=== PATIENT | female | born 1995 | race Caucasian/White ===

== ENCOUNTER 2021-03-25 11:56 | Inpatient (IN) | payer SELFPAY ==
[2021-03-25] VITALS (51 sets, daily range): BP systolic 94–142; BP diastolic 53–95; PULSE 77–121; RESP 17; TEMP 36.4; O2SAT 98–100; BMI 29.8
[2021-03-25 11:21] LABS: Basophils % 0.5 %; Eosinophils % 0.2 %; Hematocrit 34.7 % (37.0-47.0); Hemoglobin 10.3 g/dL (11.5-15.3); Lymphocytes # 1.5 10^3/uL (0.8-4.8); Lymphocytes % 16.5 %; Mean Corpuscular HGB Conc 29.7 g/dL (30.0-36.0); Mean Corpuscular Hemoglobin 24.8 pg (28.0-34.0); Mean Corpuscular Volume 83.4 fl (81-99); Mean Platelet Volume 10.9 fL (7.4-10.4); Monocytes # 0.3 10^3/uL (0.2-0.9); Neutrophils # 7.01 10^3/uL (1.8-7.7); Neutrophils % 79.1 %; Nucleated Red Blood Cells % 0 %; Platelet Count 120 10^3/cmm (130-400); Red Blood Count 4.16 10^6/uL (4.1-5.3); Red Cell Distribution Width 26.7 % (12.1-15.1); White Blood Count 8.9 10^3/uL (4.0-10.0)
[2021-03-25 12:04] LABS: Rubella IgG 120.6 IU/mL (0.0-10.0)
[2021-03-25 12:05] LABS: Hepatitis B Surface Antigen Non-Reactive (Nonreactive)
[2021-03-25 12:06] LABS: Rapid Plasma Reagin Syphilis Nonreactive (Nonreactive)
[2021-03-25 12:13] LABS: Slide Review Slide Review Perform
[2021-03-25] MEDS: ampicillin 2,000 MG in sodium chloride 0.9% (plus) 50 ML 100 MG IV (12:31)
[2021-03-25] MEDS: dextrose 5%-lactated ringers 1,000 ML 125 ML IV (12:32)
[2021-03-25 12:42] LABS: Amphetamines Screen Urine Negative (Negative); Barbiturates Screen Urine Negative (Negative); Benzodiazepines Screen Urine Negative (Negative); Cocaine Screen Urine Negative (Negative); Opiate Screen Urine Negative (Negative); PCP Screen Urine Negative (Negative); THC Screen Urine Negative (Negative)
[2021-03-25 12:53] LABS: HIV 1 & 2 Antibody Non-Reactive (Non-Reactiv); HIV 1 & 2 Antigen Non-Reactive (Non-Reactiv)
[2021-03-25 13:55] LABS: Bacteria Urine TRACE /hpf; Bilirubin Urine Neg (Negative); Blood Urine Neg (Negative); Glucose Urine UA Norm (Normal); Ketones Urine Negative (Negative); Leukocyte Esterase Urine Negative (Negative); Mucus Urine 2+ /hpf; Nitrate Urine Negative (Negative); Protein Urine Neg (Negative); RBC Urine 0-4 /hpf (0-2); Squamous Epithelial Cell Urine 0-4 /hpf (0-5); Urine Appearance Clear (CLEAR); Urine Color Yellow (Yellow); Urobilinogen Urine Norm (Negative); WBC Urine 0-4 /hpf (0-5); pH Urine 6.5 (5-7)
[2021-03-25 13:56] LABS: Add Urine Culture? No
--- NOTE | 2021-03-25 14:34 | ANES.PREANE2 ---
Pre-Anesthetic Assessment Pre-Anesthetic Assessment: Height/Weight: Height 1.57 m Weight 73.936 kg Temp Pulse BP Pulse Ox 97.5 F L 93 118/69 100 03/25/21 10:49 03/25/21 14:32 03/25/21 14:32 03/25/21 14:31 Preop Diagnosis: iup Proposed Procedure: epidural Familial anesthetic complications: BP dropped with previous epidural Last intake: 0900 Social: Social History: No alcohol and No tobacco Exam: Pre-Anes Outpt Exam: alert, oriented x 3, clear to auscultation bilaterally and regular rate & rhythm Airway: Cervical ROM: WNL MP: 2 Dentition: Full Anesthetic Plan: ASA status: 2 Anesthesia: Regional (specify below) Other: no care, denies any easy bruising and bleeding. patient informed of increased risk of epidural hematoma d/t uknown baseline platelet level, wishes to proceed Risk of > 500 ml blood loss (7ml/kg in children): Yes, adequate IV access and fluids planned Meds/Allergies Current Medications: Current Medications Generic Name Dose Route Start Last Admin Trade Name Freq PRN Reason Stop Dose Admin Dextrose/Lactated Ringer's 1,000 mls @ 125 m ls/hr 03/25/21 11:00 03/25/21 12:32 Dextrose 5%-Lact ated Ringers IV 125 mls/hr .Q8H JESUS Administration PFSH Anesthesia Female Reproductive History: : 3 Data Anesthesia CBC & Chem 7: 03/25/21 Unknown Other Labs: Laboratory Results - last 48 hr 03/25/21 03/25/21 03/25/21 12:00 12:06 Unknown WBC 8.9 RBC 4.16 Hgb 10.3 L Hct 34.7 L MCV 83.4 MCH 24.8 L MCHC 29.7 L RDW 26.7 H Plt Count 120 L MPV 10.9 H Neut % (Auto) 79.1 Lymph % (Auto) 16.5 [place] % (Auto) 3.0 Eos % (Auto) 0.2 Baso % (Auto) 0.5 Neut # (Auto) 7.01 Lymph # (Auto) 1.5 [place] # (Auto) 0.3 Eos # (Auto) 0.0 Baso # (Auto) 0.0 Nucleated RBC % (auto) 0 Nucleated RBCs # 0.0 Urine Color Yellow Urine Appearance Clear Urine pH 6.5 Ur Specific [place] 1.010 Urine Protein Neg Urine Glucose (UA) Norm Urine Ketones Negative Urine Blood Neg Urine Nitrate Negative Urine Bilirubin Neg Urine Urobilinogen Norm Ur Leukocyte Esterase Negative Urine RBC 0-4 H Urine WBC 0-4 H Ur Squamous Epith Cells 0-4 H Amorphous Sediment Not Reportable Urine Bacteria Trace Urine Mucus 2+ Urine Opiates Screen Negative Ur Barbiturates Screen Negative Ur Phencyclidine Scrn Negative Ur Amphetamines Screen Negative U Benzodiazepines Scrn Negative Urine Cocaine Screen Negative U Marijuana (THC) Screen Negative RPR Hep Bs Antigen HIV 1&2 Ab & HIV 1 Ag HIV 1&2 Antibody Rubella IgG Antibody 03/25/21 03/25/21 03/25/21 Unknown Unknown Unknown WBC RBC Hgb Hct MCV MCH MCHC RDW Plt Count MPV Neut % (Auto) Lymph % (Auto) [place] % (Auto) Eos % (Auto) Baso % (Auto) Neut # (Auto) Lymph # (Auto) [place] # (Auto) Eos # (Auto) Baso # (Auto) Nucleated RBC % (auto) Nucleated RBCs # Urine Color Urine Appearance Urine pH Ur Specific [place] Urine Protein Urine Glucose (UA) Urine Ketones Urine Blood Urine Nitrate Urine Bilirubin Urine Urobilinogen Ur Leukocyte Esterase Urine RBC Urine WBC Ur Squamous Epith Cells Amorphous Sediment Urine Bacteria Urine Mucus Urine Opiates Screen Ur Barbiturates Screen Ur Phencyclidine Scrn Ur Amphetamines Screen U Benzodiazepines Scrn Urine Cocaine Screen U Marijuana (THC) Screen RPR Nonreactive Hep Bs Antigen Non-reactive HIV 1&2 Ab & HIV 1 Ag Non-reactive HIV 1&2 Antibody Non-reactive Rubella IgG Antibody 120.6 H Cardiac Studies: No Data to Display
--- NOTE | 2021-03-25 14:35 | ANES.PROC ---
Anesthesia Procedures Procedure/Date: 03/25/21 Epidural: Time Out Performed: Yes Consents Signed: Procedure Consent and NPO Consent Consent: requested by attending/covering physician, from patient, risks and benefits reviewed and patient agrees to proceed Lumbar Level: L3-L4 Epidural procedure: sterile prep of area, 1% lidocaine to numb the area, 18 g needle, negative for paresthesia passed, neg for paresthesia, test dose given, 1.5% xylocaine 1:200k epi (5), placed PCEA, no systemic response, sterile dressing applied, L.U.D. no apparent complications and 0.2% Ropiavacaine @ mls/hr (11)
[2021-03-25] MEDS: ampicillin 1,000 MG in sodium chloride 0.9% (plus) 50 ML 100 MG IV (15:18)
[2021-03-25] MEDS: oxytocin 30 UNIT/500 ML BAG 600 UNIT IV (16:16)
--- NOTE | 2021-03-25 17:28 | P.HP_ITS ---
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 Her estimated gestational age is unknown but she is thought to be in the third trimester. She had no care because she did not have insurance, and she was concerned she would not b be able to pay for the doctor's visits. She began having contractions the day prior to her arrival on the OB floor. Her membranes were intact. She did not use any illicit drugs during her . Present Details : 3 Para: 2 Labs Rubella: Immune RPR: Negative GBS: Unknown Review of Systems General: Reports: 10 or more systems reviewed and unremarkable except in HPI and below Const: Reports: fatigue; Denies: fever(s) Eyes: Denies: change in vision Card: Denies: chest pain Musc: Reports: back pain Ricky/Lymph: Denies: easy bruising Medications/Allergies Home Medications Medication Instructions Recorded Confirmed Last Taken Type ibuprofen 800 mg PO TID #30 tab 03/26/21 Unknown Rx multivit no.21-[id number] acid 1 cap PO DAILY #30 cap 03/26/21 Unknown Rx [-U] Vitals/I&O/Wt Last Vital Signs Temp 97.5 F L 03/25/21 10:49 Pulse 86 03/25/21 16:52 BP 126/76 03/25/21 16:52 Pulse Ox 100 03/25/21 15:06 Weight last 48 hrs Weight 163 lb Physical Exam Const: COMMON NORMALS: patient oriented x3 and alert HENMT: COMMON NORMALS: moist oral mucous membranes HEAD & SCALP: normal to inspection Chest: COMMONS NORMALS: normal inspection of the chest Resp: COMMON NORMALS: clear to auscultation bilaterally AUSCULTATION: clear to auscultation bilaterally Cardio: COMMON NORMALS: regular rate and regular rhythm RATE: regular rate RHYTHM: regular rhythm GI: INSPECTION: Yes normal to inspection and Yes other (Gravid) : EXTERNAL FEMALE EXAM: Yes normal appearance of the urethra MANUAL OB EXAM: other (Originally 7 cm and 70% effaced.) Extremity: COMMON NORMALS: normal to inspection GENERAL: Yes edema (Trace) Neuro: COMMON NORMALS: patient oriented x3, moves all extremities and no sensory deficits noted SENSORIUM/ORIENTATION: Yes alert Psych: COMMON NORMALS: mental status grossly normal Skin: COMMON NORMALS: no rashes or lesions noted GENERAL SKIN EXAM: no rashes or lesions noted Urinary Catheter Management^: Perrin: Cath Placed During This Visit: yes Urinary Catheter Date of Insertion: 03/25/21 Urinary Catheter Time of Insertion: 15:05 Data : 03/26/21 05:24 Other Labs: The urinalysis was within normal limits. The urine drug screen was negative. Her RPR, hepatitis B, HIV, rubella were all within normal limits. Her blood type is a positive. Her antibody screen is negative. Chlamydia and gonorrhea are pending. A&P Assessment and plan (1) Third trimester : We will perform routine labs on the patient. We will adjust treatment based on any findings that are significant in her labs. She will be placed on group B strep protocol. I anticipate a routine spontaneous vaginal delivery given her history. Because of no care, per protocol, DFS will be contacted. To this point, the patient and her seem to be caring and appropriate. I am hopeful that DFS will only need to be involved briefly. Status: Acute Attestations Medical Necessity Statement*: I anticipate routine labor care. We will assess care after delivery. Coding Level of Care Code Acute Asset Protection Representative for Tig Fwd Exam Comprehensive Diagnoses Third trimester Z34.93
--- NOTE | 2021-03-25 17:39 | P.PCNOB_ITS ---
Delivery Note: Date of delivery: March 25, 2021 Pre-delivery diagnoses: 1. A 25-year-old 3 para 2-0-0-2 in her third trimester presenting in active labor Post-delivery diagnoses: Status post spontaneous vaginal delivery Procedure: Spontaneous vaginal delivery Op report anesthesia: Epidural Delivering Physician: Earl Power Estimated blood loss (mL): 100 Pre-Delivery Course: The patient presented to the hospital in active labor. Her membranes were intact. Labs were performed because she had no care. heart tones were reactive. The patient was cooperative and gracious throughout the process. Delivery: DELIVERY: The patient progressed to complete without difficulty. She delivered a female with a weight of 7 pounds 7 ounces with Apgars of 9, 9. The baby was delivered from the TONIA position and placed on the mother's abdomen. The cord was then clamped and cut 1 minute after delivery. There was no nuchal cord. There was no meconium. The placenta and 3 vessel cord were delivered intact shortly thereafter. The perineum and vaginal vault were carefully examined. No lacerations were noted. Both the mother and the baby were in stable condition. Post-Delivery Status: Good A&P Assessment and plan (1) Third trimester : Status: Acute Coding Level of Care Code Acute Grocery Store Courtesy Clerk for Chg Fwd Diagnoses Third trimester Z34.93
[2021-03-25] MEDS: docusate sodium 100 mg Capsule PO (18:44)
[2021-03-25] MEDS: ibuprofen 800 mg tablet PO (21:25)
[2021-03-26] VITALS (7 sets, daily range): BP systolic 119–129; BP diastolic 63–84; PULSE 66–82; RESP 16; TEMP 36.2–36.6
--- NOTE | 2021-03-26 05:35 | NUR.SHIFT ---
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 Hospice Community Liaison rubbed pts fundus it was midline -2 fingerbreaths bellow umbilicus firm scant bleeding with no clots.
[2021-03-26 05:50] LABS: Hematocrit 30.5 % (37.0-47.0); Mean Corpuscular HGB Conc 29.5 g/dL (30.0-36.0); Mean Corpuscular Hemoglobin 24.3 pg (28.0-34.0); Mean Corpuscular Volume 82.2 fl (81-99); Mean Platelet Volume 11.2 fL (7.4-10.4); Platelet Count 125 10^3/cmm (130-400); Red Blood Count 3.71 10^6/uL (4.1-5.3); Red Cell Distribution Width 26.1 % (12.1-15.1); White Blood Count 9.4 10^3/uL (4.0-10.0)
[2021-03-26] MEDS: prenatal vitamin Capsule 1 CAP PO (08:12)
[2021-03-26] MEDS: ibuprofen 800 mg tablet PO ×2 (08:12→15:22)
[2021-03-26] MEDS: docusate sodium 100 mg Capsule PO (08:12)
--- NOTE | 2021-03-26 09:40 | ANE.PACU2 ---
Inpatient post-anesthesia follow up: Airway intact: Yes Vital signs: Temperature 97.8 F Pulse Rate 82 Respiratory Rate 16 Blood Pressure 119/76 Pulse Oximetry 100 Oxygen Delivery Me thod Room Air Oxygen Flow Rate Fraction of Inspir ed Oxygen Hydration adequate: Yes Nausea and vomiting: No Pain level: 2 Mental status: Baseline
--- NOTE | 2021-03-26 09:47 | PC.SOCIAL ---
Pt requested Medicaid OB Nurse called & said that pt was interested in Medicaid. Rehab Rn emailed [facility] & provided pt with resident care aide applications. Informed pt that she can go on Medicaid.gov to get more info & [employer] helps people get Medicaid started. No other needs voiced by pt. Pt's at side.
--- NOTE | 2021-03-26 13:43 | PC.NURSE ---
This nurse walked into room to find grandfather holding up phone and videoing conversation with the DFS worker. This nurse continued watch from the side as grandfather and worker came to agreement so the worker could see the other children at the home. The grandfather then turned to myself asking why/who made the call stating that the call was made claiming drug abuse/use and wanted to know why that call was made and then asked if it was made because of his skin in dark , as he points to the baby's father. This nurse reassured that it was noted due to that and that we here in the OB dept as mandated reporters are required to make the call-in for no or limited care. He then quickly jumped to say that's ridiculous, we have talked with several nurses and they all say that its not required to spend thousands of dollars on appts that are not required. This nurse again just explained how it in our policy and he returned back with well I will be getting in contact with my glass curvature gauger to talat the hospital. Grandfather and DFS worker then left together to see the other children.
--- NOTE | 2021-03-26 14:43 | P.DS_ITS ---
Discharge Providers SENIOR PRIVATE CLIENT ADVISOR Date of Admission: 03/25/21 11:56 Date of Discharge: 03/26/21 Attending Provider at Admission: Earl Power MD Attending Provider at Discharge: Earl Power MD Primary Care Provider: Ghislaine Parrish MD Diagnoses at Discharge Discharge Diagnosis (1) Third trimester : Status: Acute (2) Spontaneous vaginal delivery: Status: Acute (3) care insufficient: Status: Acute Reason for Visit Reason for Visit: contractions Hospital Course Hospital Course The patient presented to the hospital in active labor. She had had no care. She is unsure of her LMP. Her membranes were intact. She is having consistent contractions. Her cervix is 7 cm. An epidural was placed. She progressed to complete. Her membranes ruptured as she was delivering the baby. No repair was required. She breast-fed well . Her bleeding was within normal limits. Her pain was well controlled. There were no concerns. DFS was contacted per policy because of no care. The patient and her were notified, and they were understanding. Otherwise, the parents appear to do an excellent job of caring for their infant. They both appear to be very appropriate, mature, and appeared to be very comfortable, but I take care of the baby. The grandfather did arrive today with a DFS worker also arrived. He was very frustrated that DFS been contacted. The nurses and DFS workers discussed this with him. Information Peripartum Data: Delivery Method: Vaginal Physical Exam Narrative: EXAM NARRATIVE: The patient is alert. She appears comfortable. Her heart has a regular rate and rhythm with no murmurs appreciated. Lungs are clear to auscultation bilaterally. Her fundus is firm and below the umbilicus. Urinary Catheter Management^: Perrin: Cath Placed During This Visit: yes, but has since been removed by the nurse Reason for Continuing Indwelling Catheter: Accurate Measurement of Urinary Output in Critically Ill Patients Urinary Catheter Date of Insertion: 03/25/21 Urinary Catheter Time of Insertion: 15:05 Date Urinary Catheter Removed: 03/25/21 Time Urinary Catheter Discontinued: 16:13 Discharge Data Data Completed and Pending: Pending at discharge Category Date Time Status Chlamydia Trachom atis JENNIE Routine Lab 03/25/21 12:00 Received Neisseria Gonorrh oeae JENNIE Routine Lab 03/25/21 12:00 Received Labs from last 24 hours 03/26/21 03/25/21 05:24 12:50 WBC 9.4 RBC 3.71 L Hgb 9.0 L Hct 30.5 L MCV 82.2 MCH 24.3 L MCHC 29.5 L RDW 26.1 H Plt Count 125 L MPV 11.2 H Blood Type A Positive Rho(D) Type Positive Antibody Screen Negative Vitals: Last Vital Signs Temp 97.9 F 03/26/21 08:15 Pulse 79 03/26/21 08:15 Resp 17 03/25/21 17:56 BP 121/80 03/26/21 08:15 Pulse Ox 100 03/25/21 15:06 Discharge Plan Discharge Patient Disposition: Home Condition: Stable Prescriptions: New ibuprofen 800 mg Tablet 800 mg PO TID Qty: 30 RF: 0 -U 106.5-1 mg Capsule 1 cap PO DAILY Qty: 30 RF: 0 Discharge Orders: Discharge Order (Routine); Ordered 03/26/21 Ordered By: Earl Power Referrals: Earl Power MD [Physician] - 6 Weeks Discharge Diet: Usual diet Discharge Activity: Limit activity as instructed Patient Instructions: Bleeding (GEN), Preeclampsia and Eclampsia After Delivery (GEN), OB Discharge Report, OB Food/Drug Interaction Guide, OB Care at Home, Opioid Safety, OB Vaginal Deliveries Discharge Attestations SENIOR PRIVATE CLIENT ADVISOR Time Spent in Discharge Care*: less than 30 min Specific Discharge Activities: Specific discharge activities: educating patient and educating and/or supporting family/caregiver Coding Level of Care Code Acute Preassembler And Inspector for Chg Fwd Diagnoses Third trimester Z34.93 Spontaneous vaginal delivery O80 care insufficient O09.30
== END 2021-03-26 16:55 | disposition home or self-care (01) | DRG 807 ==
LOC: OPOB 12:12 → OBGYN 12:12
PROVIDERS: Admitting Provider Family Medicine; PCP Family Medicine; Visit Provider Family Medicine
DX: O80 Encounter for full-term uncomplicated delivery (principal); Z37.0 Single live birth; Z3A.00 Weeks of gestation of pregnancy not specified; Z03.79 Encounter for other suspected maternal and fetal conditions ruled out
CPT/HCPCS: 12345; 36415; 51702; 59025; 59409; 80306; 81001; 85025; 85027; 86592; 86762; 86850; 86900; 87340; 87491; 87591; 87806; 99211; J0290; J2795

== ENCOUNTER → 2021-05-31 11:07 | Outpatient (BNVA) | payer SELFPAY | PROVIDERS: PCP Family Medicine; Visit Provider Registered Nurse | DX: R42 Dizziness and giddiness (principal) | CPT/HCPCS: 84443; 85025 ==